=== PATIENT | male | born 1975 | race Caucasian/White ===

== ENCOUNTER 2017-09-23 06:02 | Emergency (ER) | payer SELFPAY ==
[2017-09-23 06:03] VITALS: BP 153/87; PULSE 74; RESP 17; TEMP 37; O2SAT 95; BMI 39.1
--- NOTE | 2017-09-23 06:06 | RAD_ITS ---
STUDY: X-RAY - RIGHT WRIST REASON FOR EXAM: Male, 42 years old. Status post fall. Pain. TECHNIQUE: 3 view(s) of the wrist were obtained. COMPARISON: None. FINDINGS: There is an acute traumatic fracture of the distal radius. Fracture extends from the lateral cortex of the metaphysis to the articular surface, underlying the radial-lunate articulation. Site. Normal visualized distal ulna. Normal radiocarpal articulation. Normal distal radioulnar articulation. Normal carpal bones. Normal carpal articulations. Normal carpometacarpal articulation of the thumb. Normal second through fifth carpometacarpal articulations. There is an old healed fifth metacarpal fracture. The soft tissue structures are unremarkable. RAD/Wrist min 3 Views IMPRESSION: Acute nondisplaced fracture of the distal radius, with intra-articular involvement at the radial-carpal articulation. Electronically Signed: Basilio Hennessy MD at 6:54 EST , Service support ,
--- NOTE | 2017-09-23 06:19 | ED.DCSUM_ITS ---
- ER Visit Summary Date of Service: 09/23/17 Chief Complaint: Fall and right wrist injury History of Present Illness: The patient is a 42 M hand dominant male. He was leaving his house to go to work he slipped on his front porch and landed awkwardly on his right wrist. Now complaining of right wrist pain and swelling. Also decreased range of motion of his right wrist. He broke his fall with his right wrist. He denies any head, neck, back or other injuries. No prior history of right upper extremity injury or fracture or surgery. Physical Examination: Signs are stable afebrile. HEENT exam atraumatic nontender. Pupils round reactive light. C-spine, T-spine LS-spine and back are nontender. Normal range of motion to his neck. Trachea midline. Lungs clear to auscultation bilaterally. Heart regular rate and rhythm no murmur. Chest wall nontender. Abdomen soft and nontender. Normal bowel sounds no peritoneal signs. Pelvic girdle intact. He is moving all 4 extremities. Neurovascular intact. Both lower extremities and left upper extremity are nontender normal range of motion. His right shoulder, elbow and proximal forearm are nontender normal range of motion. He does have pain on palpation, tenderness and swelling to the right wrist. The right wrist is decreased range of motion. I do not see any gross bony deformities. The skin is intact. Right hand has normal touch sensation. And no deformities. Neurologic exam is normal. Test Results: Right wrist x-ray shows nondisplaced distal radius fracture. Emergency Department Course and Treatment: Patient was placed in a short arm AP splint using Ortho-Glass. Treatment Plan: Ice and elevate right wrist. Keep splint dry and clean. Motrin for pain and inflammation. Call and follow-up with Dr. Aren Pal of orthopedics Disposition: Discharge Impression: Acute fall Acute right wrist distal radius nondisplaced fracture Short arm AP splint by ER This note was generated with [employer] dictation software. It may contain incorrect words, spelling, and punctuation that were not noted in review of the chart prior to signing ED Disposition - Plan for ED Patient: Chief Complaint: Upper Extremity Injury Referrals: NOT,DEFINED [NON-STAFF] -
--- NOTE | 2017-09-23 06:46 | ED.DEP ---
ED Disposition - Plan for ED Patient: Disposition: Home or Assisted Living Chief Complaint: Upper Extremity Injury Instructions: ED Fx Wrist General Referrals: Isaias Pal DO [STAFF PHYSICIAN] - As soon as possible Additional Instructions: Ice and elevate right wrist as much as possible to decrease pain and swelling. Keep splint dry and clean. Call and follow-up with Dr. Isaias Pal for repeat evaluation and casting.
--- NOTE | 2017-10-11 13:51 | RAD_ITS ---
STUDY: X-RAY - RIGHT WRIST REASON FOR EXAM: Male, 42 years old. Fracture follow-up. TECHNIQUE: 3 view(s) of the wrist were obtained. COMPARISON: Radiographs of the right wrist dated September 23, 2017. FINDINGS: The undisplaced intra-articular fracture of the distal radius is difficult to see due to the cast. Appears to be normal alignment of the fracture fragments. There is degenerative arthrosis of the radiocarpal articulation. Normal distal radioulnar articulation. Normal carpal bones. Normal carpal articulations. Normal carpometacarpal articulation of the thumb. Normal second through fifth carpometacarpal articulations. There is deformity of fifth metacarpal, similar to the previous study and likely related to old fracture. There is soft tissue swelling. RAD/Wrist min 3 Views IMPRESSION: Unchanged appearance to undisplaced fracture of the distal radius. Electronically Signed: Yarely Jacobson MD at 10:35 EST , Service support ,
== END 2017-09-23 07:18 | disposition home or self-care (01) ==
LOC: ED 06:48 → HPRAD 10-11 13:53
PROVIDERS: Emergency Provider Emergency Medicine
DX: S52.571A Other intraarticular fracture of lower end of right radius, initial encounter for closed fracture (principal); W00.0XXA Fall on same level due to ice and snow, initial encounter; Y93.9 Activity, unspecified; Y92.008 Other place in unspecified non-institutional (private) residence as the place of occurrence of the external cause; Y99.9 Unspecified external cause status
CPT/HCPCS: 25605; 73110; 99283

== ENCOUNTER → 2017-10-11 13:50 | Outpatient (CLI) | payer SELFPAY | PROVIDERS: Visit Provider Orthopaedic Surgery | DX: S52.571D Other intraarticular fracture of lower end of right radius, subsequent encounter for closed fracture with routine healing (principal) ==

== ENCOUNTER → 2017-10-25 13:31 | Outpatient (CLI) | payer SELFPAY ==
[2017-09-23 06:03] VITALS: BP 153/87
[2017-09-30 16:20] VITALS: BMI 33.6
--- NOTE | 2017-10-25 13:33 | RAD_ITS ---
STUDY: X-RAY - RIGHT WRIST REASON FOR EXAM: Male, 42 years old. Follow-up fracture TECHNIQUE: Three view(s) of the wrist were obtained. COMPARISON: October 11, 2017 and September 23, 2017 FINDINGS: Bones: Minimal lucencies are again seen in the distal radius. An old fracture is again seen in the fifth metacarpal. Joints: The visualized joints are unremarkable. Soft tissues: The soft tissues are unremarkable. Foreign body: None RAD/Wrist min 3 Views IMPRESSION: There are healing fractures in the distal right radius. Electronically Signed: Radha Gutierrez MD at 1:15 EST Tel Direct: [phone], Service support ,
== END ==
PROVIDERS: Visit Provider Orthopaedic Surgery
DX: S52.571D Other intraarticular fracture of lower end of right radius, subsequent encounter for closed fracture with routine healing (principal)
CPT/HCPCS: 73110